=== PATIENT | male | born 1950 | race Caucasian/White ===

== ENCOUNTER 2024-08-04 22:24 | Inpatient (IN) | payer MEDICARE, OTHER ==
[~2024-08-04] VITALS: Ht 185.4 cm; Wt 75.7 kg
[2024-08-04] MEDS ORDERED: ACETAMINOPHEN 325 MG TABLET ONE (23:32)
[2024-08-04] MEDS: ACETAMINOPHEN 650 MG/20.3 ML LIQUID UDC PO ONE (23:33)
[2024-08-05] MEDS ORDERED: TEMAZEPAM 7.5 MG CAPSULE PO PRN (00:45)
[2024-08-05] MEDS ORDERED: MAG HYDROX/AL HYDROX/SIMETH 30 ML LIQUID UDC PO PRN (00:45)
[2024-08-05] MEDS ORDERED: ACETAMINOPHEN 650 MG SUPP.RECT RC PRN (00:45)
[2024-08-05] MEDS ORDERED: CLONAZEPAM 0.5 MG TABLET PO PRN (00:45)
[2024-08-05] MEDS: TEMAZEPAM 7.5 MG CAPSULE PO PRN (01:25)
[2024-08-05 03:03] VITALS: BP 155/79; TEMP 97.8; O2SAT 98
[2024-08-05] MEDS: CLONAZEPAM 0.5 MG TABLET PO PRN (08:03)
[2024-08-05 08:35] VITALS: BP 148/77; TEMP 98.2; O2SAT 97
[2024-08-05] MEDS: risperiDONE 0.5 MG TABLET PO SCH (09:06)
[2024-08-05 16:15] VITALS: BP 124/71; TEMP 98.1; O2SAT 98
[2024-08-05 19:43] VITALS: BP 130/72; TEMP 98.2; O2SAT 96
[2024-08-05] MEDS: ACETAMINOPHEN 325 MG TABLET PO PRN (21:48)
[2024-08-06 07:12] LABS: BASOPHILS % (AUTO) 0.8 % (0.0-2.0); EOSINOPHILS # (AUTO) 0.2 K/uL (0.0-0.7); EOSINOPHILS % (AUTO) 3.2 % (0.0-7.0); HEMATOCRIT 39.2 % (36.7-47.1); HEMOGLOBIN 12.9 g/dL (12.5-16.3); LYMPHOCYTES # (AUTO) 1.2 K/uL (0.8-4.8); LYMPHOCYTES % (AUTO) 23.4 % (20.5-51.5); MEAN CORPUSCULAR HEMOGLOBIN 28.8 uug (23.8-33.4); MEAN CORPUSCULAR HGB CONC 33 g/dL (32.5-36.3); MEAN CORPUSCULAR VOLUME 87.6 fL (73.0-96.2); MONOCYTES # (AUTO) 0.4 K/uL (0.1-1.30); MONOCYTES % (AUTO) 8.3 % (0.0-11.0); NEUTROPHILS # (AUTO) 3.3 K/uL (1.8-8.9); NEUTROPHILS % (AUTO) 64.3 % (38.5-71.5); PLATELET COUNT (AUTO) 232 K/uL (152-348); RED BLOOD CELL COUNT(AUTO) 4.48 MIL/uL (4.06-5.63); RED CELL DISTRIBUTION WIDTH 15.7 % (12.1-16.2); WHITE BLOOD COUNT (AUTO) 5.2 K/uL (3.6-10.2)
[2024-08-06 07:16] LABS: DIFFERENTIAL COMMENT 1
[2024-08-06 07:39] LABS: THYROID STIMULATING HORMONE 3.024 mIU/mL (0.358-3.740)
[2024-08-06] MEDS: CLONAZEPAM 0.5 MG TABLET PO PRN (07:48)
[2024-08-06 08:05] LABS: ALANINE AMINOTRANSFERASE 19 U/L (16-63); ALBUMIN 3.1 g/dL (3.4-5.0); ALKALINE PHOSPHATASE 58 U/L (50-136); ASPARTATE AMINOTRANSFERASE 21 U/L (15-37); BILIRUBIN,TOTAL 0.4 mg/dL (0.2-1.0); CARBON DIOXIDE 29 mmol/L (21-32); CHLORIDE 105 mmol/L (98-107); CHOLESTEROL 147 mg/dL (<200); CREATININE 0.7 mg/dL (0.6-1.3); GLUCOSE 89 mg/dL (74-106); HDL CHOLESTEROL 60 mg/dL (40-60); PHOSPHOROUS 3.7 mg/dL (2.5-4.9); POTASSIUM 4.1 mmol/L (3.5-5.1); SODIUM SERUM 139 mmol/L (136-145); TOTAL PROTEIN, SERUM 6.1 g/dL (6.4-8.2); TRIGLYCERIDES 105 MG/DL (30-150); UREA NITROGEN, BLOOD 14 mg/dL (7-18)
[2024-08-06 08:06] VITALS: BP 142/82; TEMP 98; O2SAT 94
[2024-08-06 08:11] LABS: CALCIUM 8.5 mg/dL (8.5-10.1)
[2024-08-06 14:21] VITALS: BP 114/68; TEMP 98; O2SAT 98
[2024-08-06 19:42] VITALS: BP 132/71; TEMP 98.1; O2SAT 95
[2024-08-07 08:00] VITALS: BP 153/81; TEMP 98; TEMP 98.4; O2SAT 94
[2024-08-07 16:38] VITALS: BP 132/83; TEMP 98; O2SAT 96
[2024-08-07 19:37] VITALS: BP 142/78; TEMP 98.1; O2SAT 96
[2024-08-07] MEDS: MAGNESIUM HYDROXIDE 30 ML LIQUID UDC PO PRN (20:57)
[2024-08-08 08:16] VITALS: BP 136/84; TEMP 98; O2SAT 94
[2024-08-08 15:14] VITALS: BP 129/62; TEMP 98.6; O2SAT 98
[2024-08-08 20:00] VITALS: BP 107/53; TEMP 97.3; O2SAT 94
[2024-08-09 08:25] VITALS: BP 157/86; TEMP 98; O2SAT 96
[2024-08-09 15:10] VITALS: BP 140/95; TEMP 98; O2SAT 92
[2024-08-09 20:00] VITALS: BP 119/51; TEMP 97.5; O2SAT 94
[2024-08-10 08:24] VITALS: BP 121/61; TEMP 97.7; O2SAT 97
[2024-08-10 16:17] VITALS: BP 156/84; TEMP 97.9; O2SAT 97
[2024-08-10] MEDS: risperiDONE 0.5 MG TABLET PO SCH ×2 (16:27→21:22)
[2024-08-10 20:22] VITALS: BP 123/58; TEMP 98; O2SAT 99
[2024-08-11 09:01] VITALS: BP 157/97; TEMP 98.2; O2SAT 97
[2024-08-11 10:44] VITALS: BP 140/70; O2SAT 98
[2024-08-11 16:34] VITALS: BP 150/78; TEMP 98; O2SAT 97
[2024-08-11 20:08] VITALS: BP 148/78; TEMP 98.1; O2SAT 96
[2024-08-12 08:08] VITALS: BP 142/90; TEMP 98.2; O2SAT 97
[2024-08-12 08:29] VITALS: BP 142/90; TEMP 98.2; O2SAT 97
[2024-08-12] MEDS: AMLODIPINE 5 MG TABLET PO SCH (12:14)
[2024-08-12 16:17] VITALS: BP 131/71; TEMP 98.7; O2SAT 96
[2024-08-12 20:17] VITALS: BP 140/76; TEMP 98.1; O2SAT 96
[2024-08-13 07:36] VITALS: BP 135/61; TEMP 98; O2SAT 96
[2024-08-13 15:42] VITALS: BP 112/63; TEMP 98; O2SAT 96
[2024-08-13 20:14] VITALS: BP 130/64; TEMP 98.1; O2SAT 96
[2024-08-14 08:28] VITALS: BP 131/67; TEMP 98; O2SAT 94
[2024-08-14 15:27] VITALS: BP 115/67; TEMP 98; O2SAT 94
[2024-08-14 20:00] VITALS: BP 157/74; TEMP 98; O2SAT 96
[2024-08-15 08:49] VITALS: BP 124/65; TEMP 98; O2SAT 96
[2024-08-15 15:53] VITALS: BP 149/67; TEMP 98; O2SAT 96
[2024-08-15 20:00] VITALS: BP 116/51; TEMP 97.9; O2SAT 95
[2024-08-15] MEDS: risperiDONE 1 MG TABLET PO SCH (20:29)
[2024-08-16 07:51] VITALS: BP 150/56; TEMP 98.2; O2SAT 96
[2024-08-16 15:42] VITALS: BP 123/64; TEMP 98; O2SAT 98
[2024-08-16 20:00] VITALS: BP 112/73; TEMP 98.4; O2SAT 93
[2024-08-17 07:44] VITALS: BP 138/83; TEMP 98.1; O2SAT 98
[2024-08-17 17:11] VITALS: BP 118/59; TEMP 98; O2SAT 98
[2024-08-17 20:00] VITALS: BP 100/61; TEMP 97.5; O2SAT 95
[2024-08-18 08:33] VITALS: BP 143/76; TEMP 98.3; O2SAT 98
[2024-08-18 16:58] VITALS: BP 129/73; TEMP 98.1; O2SAT 98
[2024-08-18 19:56] VITALS: BP 136/74; TEMP 98.1; O2SAT 96
[2024-08-19 07:53] VITALS: BP 114/57; TEMP 98.4; O2SAT 98
[2024-08-19 16:37] VITALS: BP 137/71; TEMP 98.2; O2SAT 97
[2024-08-19] MEDS ORDERED: risperiDONE 0.5 MG TABLET PO SCH (17:00)
[2024-08-19] MEDS: risperiDONE 1 MG TABLET PO SCH (17:03)
[2024-08-19 20:05] VITALS: BP 126/62; TEMP 98.1; O2SAT 96
[2024-08-20 07:49] VITALS: BP 133/86; TEMP 98; O2SAT 96
[2024-08-20 15:53] VITALS: BP 142/87; TEMP 98; O2SAT 96
== END 2024-08-20 16:35 | DRG 885 ==
LOC: ER 22:30 → GPS 22:45
PROVIDERS: ADMIT Psychiatry & Neurology Psychosomatic Medicine; ATTEND Internal Medicine
DX: F29 Unspecified psychosis not due to a substance or known physiological condition (principal); G93.41 Metabolic encephalopathy; Z59.02 Unsheltered homelessness; S01.112D Laceration without foreign body of left eyelid and periocular area, subsequent encounter; W18.30XD Fall on same level, unspecified, subsequent encounter; R29.6 Repeated falls; I10 Essential (primary) hypertension; R41.9 Unspecified symptoms and signs involving cognitive functions and awareness; Z79.899 Other long term (current) drug therapy; G89.29 Other chronic pain
CPT/HCPCS: 36415; 83735; 84100; 84443; 85025

== ENCOUNTER 2025-08-06 18:15 | Inpatient (IN) | payer MEDICARE, OTHER ==
[~2025-08-06] VITALS: Ht 185.4 cm; Wt 71.7 kg
[2025-08-06] MEDS ORDERED: MELA5TAB PO (18:40)
[2025-08-06] MEDS ORDERED: CHOL2000 PO (18:40)
[2025-08-06] MEDS ORDERED: BISA10SU61 RC (18:40)
[2025-08-06] MEDS ORDERED: ACET-2154 PO (18:40)
[2025-08-06] MEDS ORDERED: B CO1TAB6 PO (18:40)
[2025-08-06] MEDS ORDERED: MINE133E RC (18:40)
[2025-08-06] MEDS ORDERED: MAGN400O6 PO (18:40)
[2025-08-06 18:45] LABS: PLATELET COUNT (AUTO) 199 K/uL (152-348); RED BLOOD CELL COUNT(AUTO) 4.78 MIL/uL (4.06-5.63); RED CELL DISTRIBUTION WIDTH 14.2 % (12.1-16.2); WHITE BLOOD COUNT (AUTO) 5.2 K/uL (3.6-10.2)
[2025-08-06 18:55] LABS: CREATININE 0.7 mg/dL (0.6-1.3); SODIUM SERUM 141 mmol/L (136-145); UREA NITROGEN, BLOOD 22 mg/dL (7-18)
[2025-08-06 19:02] LABS: ETHANOL < 3 MG/DL (0-10)
[2025-08-06 19:12] LABS: ASPARTATE AMINOTRANSFERASE 14 U/L (15-37); TOTAL PROTEIN, SERUM 6.8 g/dL (6.4-8.2)
[2025-08-06 20:13] LABS: *BILIRUBIN,URIN NEGATIVE (NEGATIVE); *BLOOD, URINE NEGATIVE (NEGATIVE); *CLARITY,URINE CLEAR (CLEAR); *COLOR,URINE YELLOW (YELLOW); *KETONES,URINE NEGATIVE (NEGATIVE); *PROTEIN,URINE NEGATIVE (NEGATIVE); *UROBILINOGEN,URINE 0.2 E.U./dl (NORMAL); LEUKOCYTE ESTERASE ,URINE NEGATIVE (NEGATIVE); NITRITE, URINE NEGATIVE (NEGATIVE); UGLUCOSE NEGATIVE (NEGATIVE)
[2025-08-06 20:24] LABS: *AMPHETAMINE, URINE NEGATIVE (NEGATIVE); *BARBITURATE, URINE NEGATIVE (NEGATIVE); *BENZODIAZEPINE, URINE NEGATIVE (NEGATIVE); *CANNABINOID, URINE NEGATIVE (NEGATIVE); *COCCAINE, URINE NEGATIVE (NEGATIVE); *OPIATE, URINE NEGATIVE (NEGATIVE); *PHENCYCLIDINE SCREEN,URINE NEGATIVE (NEGATIVE); FENTANYL, URINE NEGATIVE (NEGATIVE)
[2025-08-06 22:05] VITALS: BP 128/79
[2025-08-06] MEDS ORDERED: MAG HYDROX/AL HYDROX/SIMETH 30 ML LIQUID UDC PO PRN (22:30)
[2025-08-06] MEDS ORDERED: MAGNESIUM HYDROXIDE 30 ML LIQUID UDC PO PRN (22:30)
[2025-08-06] MEDS ORDERED: QUETIAPINE FUMARATE 25 MG TABLET PO PRN ×2 (22:30)
[2025-08-06] MEDS ORDERED: ZOLPIDEM 5 MG TABLET PO PRN (22:30)
[2025-08-06 22:35] VITALS: BP 152/80; TEMP 98.1; O2SAT 98
[2025-08-06] MEDS: BLOOD SUGAR DIAGNOSTIC 1 EACH STRIP VI ONE (23:00)
[2025-08-07] MEDS ORDERED: CHOL-35 PO (08:49)
[2025-08-07 09:39] VITALS: BP 132/65; TEMP 98; O2SAT 98
[2025-08-07] MEDS: DIVALPROEX 125 MG TABLET.DR PO SCH (12:53)
[2025-08-07] MEDS: ACETAMINOPHEN 325 MG TABLET PO PRN (13:03)
[2025-08-07 15:59] VITALS: BP 120/71; TEMP 98.2; O2SAT 96
[2025-08-07] MEDS ORDERED: BISACODYL 10 MG SUPP.RECT RC PRN (16:15)
[2025-08-07] MEDS ORDERED: MINERAL OIL FLEET ENEMA 133 ML BOTTLE RC PRN (16:15)
[2025-08-07 20:00] VITALS: BP 128/67; TEMP 97.3; O2SAT 95
[2025-08-07] MEDS: OLANZAPINE 2.5 MG TABLET PO SCH (20:43)
[2025-08-08 08:08] VITALS: BP 140/71; TEMP 98.2; O2SAT 96
[2025-08-08] MEDS ORDERED: B COMPLEX WITH VITAMIN C PO SCH (09:00)
[2025-08-08] MEDS: VITAMIN B COMPLEX 1 TABLET PO SCH (09:16)
[2025-08-08] MEDS: CHOLECALCIFEROL 1,000 UNIT TABLET PO SCH (09:16)
[2025-08-08] MEDS: ASCORBIC ACID 500 MG TABLET PO SCH (09:17)
[2025-08-08] MEDS: ENSURE ENLIVE (VAN) 240 ML LIQUID PO SCH (09:18)
[2025-08-08 16:21] VITALS: BP 128/76; TEMP 97.3; O2SAT 95
[2025-08-08 20:00] VITALS: BP 125/80; TEMP 98.2; O2SAT 96
[2025-08-09 09:23] VITALS: BP 142/83; TEMP 97.9; O2SAT 96
[2025-08-09 15:11] VITALS: BP 151/79; TEMP 98.4; O2SAT 96
[2025-08-09 20:00] VITALS: BP 111/51; TEMP 98.7; O2SAT 95
[2025-08-10 08:20] VITALS: BP 110/83; TEMP 98.4; O2SAT 96
[2025-08-10 16:56] VITALS: BP 112/80; TEMP 97.3; O2SAT 95
[2025-08-10 20:10] VITALS: BP 110/78; TEMP 97.9; O2SAT 96
[2025-08-11 08:36] VITALS: BP 139/76; TEMP 98.4; O2SAT 96
[2025-08-11 16:48] VITALS: BP 136/71; TEMP 97.3; O2SAT 95
[2025-08-11 20:00] VITALS: BP 100/69; TEMP 98.5; O2SAT 97
[2025-08-11] MEDS ORDERED: DIVALPROEX 125 MG TABLET.DR PO SCH (21:00)
[2025-08-11] MEDS: DIVALPROEX 250 MG TABLET.DR PO SCH (21:05)
[2025-08-12 08:18] VITALS: BP 140/91; TEMP 98.4; O2SAT 96
[2025-08-12 16:37] VITALS: BP 141/61; TEMP 97.3; O2SAT 95
[2025-08-12 20:00] VITALS: BP 141/80; TEMP 98.1; O2SAT 95
[2025-08-12] MEDS: OLANZAPINE 2.5 MG TABLET PO SCH (20:39)
[2025-08-13 07:54] VITALS: BP 145/76; TEMP 97.6
[2025-08-13] MEDS ORDERED: OLANZAPINE 5 MG TABLET PO SCH (09:00)
[2025-08-13] MEDS: OLANZAPINE 2.5 MG TABLET PO SCH (09:22)
[2025-08-13 15:59] VITALS: BP 116/59; TEMP 97.7; O2SAT 97
[2025-08-13 20:00] VITALS: BP 129/58; TEMP 97.8; O2SAT 95
[2025-08-14 08:00] VITALS: BP 148/77; TEMP 97.8; O2SAT 99
[2025-08-14 16:00] VITALS: BP 150/76; TEMP 98.7; O2SAT 98
[2025-08-14 19:00] VITALS: BP 135/78; TEMP 98; O2SAT 94
[2025-08-15 08:06] VITALS: BP 148/76; TEMP 97.4; O2SAT 99
[2025-08-15 16:36] VITALS: BP 151/73; TEMP 97.4; O2SAT 98
[2025-08-15 19:57] VITALS: BP 124/63; TEMP 98.2; O2SAT 95
[2025-08-15] MEDS: ZOLPIDEM 5 MG TABLET PO PRN (22:10)
[2025-08-16 07:49] VITALS: BP 153/73; TEMP 97.4; O2SAT 95
[2025-08-16 20:00] VITALS: BP 131/57; TEMP 97.4; O2SAT 96
[2025-08-17 08:50] VITALS: BP 161/86; TEMP 97.4; O2SAT 95
[2025-08-17 16:38] VITALS: BP 150/58; TEMP 97.4; O2SAT 96
[2025-08-17 22:01] VITALS: BP 152/92; TEMP 98.3; O2SAT 96
[2025-08-18] MEDS: DIVALPROEX 125 MG TABLET.DR PO SCH (12:20)
[2025-08-18 16:12] VITALS: BP 125/78; TEMP 97.4; O2SAT 96
[2025-08-18 20:23] VITALS: BP 131/72; TEMP 98.3; O2SAT 95
[2025-08-19 08:20] VITALS: BP 128/64; TEMP 97.4; O2SAT 95
[2025-08-19 16:30] VITALS: BP 110/78; TEMP 97.4; O2SAT 96
[2025-08-19 19:52] VITALS: BP 118/64; TEMP 97.2; O2SAT 96
[2025-08-20 07:30] VITALS: BP 122/68; TEMP 97.5; O2SAT 96
== END 2025-08-20 11:45 | DRG 885 ==
LOC: ER 18:20 → GPS 22:05
PROVIDERS: ADMIT Psychiatry & Neurology Psychiatry; ATTEND Internal Medicine
DX: F39 Unspecified mood [affective] disorder (principal); F20.9 Schizophrenia, unspecified; G31.84 Mild cognitive impairment of uncertain or unknown etiology; R26.81 Unsteadiness on feet; I10 Essential (primary) hypertension; F22 Delusional disorders; Z87.891 Personal history of nicotine dependence; Z91.81 History of falling; Z87.820 Personal history of traumatic brain injury; Z91.018 Allergy to other foods; Z79.899 Other long term (current) drug therapy
CPT/HCPCS: 36415; 70450; 80164; 84484; 85025; G0480; J3490